=== PATIENT | male | born 1975 | race Caucasian/White ===

== ENCOUNTER 2016-12-28 11:50 | Day surgery (SDC) | payer OTHER ==
[2016-12-28] VITALS (11 sets, daily range): BP systolic 113–131; BP diastolic 51–69; PULSE 74–84; RESP 16–26; O2SAT 92–97
[~2016-12-28] VITALS: Ht 190.5 cm; Wt 152.2 kg
[~2016-12-28 11:50] MED LIST: ALBU2.5V4 INHALATION; ATOM40 PO; CeFAZolin Inj 3 GM in IV Premix IV ONE; FLUT12AE10 IH; HYDR-4003 PO; IBUP200C PO; LISI10TA PO; Lactated Ringer's 1,000 ML IV SCH; MELO-259 PO; NAPR500T PO; OXCA300T2 PO; PALI3TAB PO; RANI150C4 PO; carbamazepine
[2016-12-28] MEDS ORDERED: Ondansetron 2 mg/mL 2 mL Inj ONE (11:51)
[2016-12-28] MEDS ORDERED: fentaNYL-PF 50 mCg/mL 2 mL Inj ONE (11:51)
[2016-12-28] MEDS ORDERED: Propofol 10,000 mCg/mL 20 mL Inj ONE (11:51)
[2016-12-28] MEDS ORDERED: MetoCLOpramide 5 mg/mL 2 mL Inj ONE (11:51)
[2016-12-28] MEDS ORDERED: Dexamethasone 4 mg/mL Inj ONE (11:51)
[2016-12-28] MEDS: Lactated Ringer's 1,000 ML IV SCH ×2 (12:37→16:05)
[2016-12-28] MEDS ORDERED: CARB100C8 PO (12:42)
[2016-12-28] MEDS ORDERED: CeFAZolin Inj 3 Gm/ D5W 50 mL Bag IV ONE (13:42)
[2016-12-28] MEDS ORDERED: HYDROcodone-APAP 5-325 mg Tablet PO PRN (14:10)
--- NOTE | 2016-12-28 14:12 | PCM.ORTHOP ---
Orthopedic Operative Report Date of Service: Dec 28, 2016 Pre Operative Diagnosis Right distal biceps rupture Post Operative Diagnosis Same Procedure Right distal biceps repair Surgeon Surgeon: Zan Russo MD Assistants: Bruce Esteban Indication for Procedure Right distal biceps rupture Findings Per dictation Details of Procedure Operative Indications: Zan a 41-year-old male who presents with right distal biceps rupture A clear explanation was given to the patient regarding the condition, the conservative and surgical options. It was emphasized that the risks and benefits of surgery include but are not limited to infection, wound healing problems, damage to adjacent structures such as nerves, blood vessels and tendons, buttermilk drier operator disability and pain, arthritis, hypersensitivity, deep vein thrombosis, pulmonary embolism and loss of limb or life. The likely post operative recovery and the instructions that are to be followed after surgery were also discussed and explained. The patient was invited to ask questions or seek clarification but there were none. The patient voiced understanding of the entire discussion and requested to move forward. Procedure: Zan was seen in preoperative holding and the right side was reconfirmed and marked as the correct side. The patient was taken to the OR and transferred to the OR table without incident. A time-out was performed reconfirming the patients identity, laterality of surgery and proper administration of preoperative antibiotics. . After the examination the extremity was prepped and draped in a sterile fashion with 2% Clorhexadine solution. A sterile tourniquet was applied. The incision was clearly marked out. We paused to reconfirm the procedure and laterality one last time. Incision was made with a #15 blade and subsequent sharp dissection was performed with aid of electrocautery to control the bleeding down to the level of the fascia. Appropriate full thickness skin flaps were subsequently developed. There was notable disruption of biceps from the trauma. The interval between the BR and pronator teres was identified and developed down to the level of the joint capsule. The lateral antebrachial cutaneous nerve was identified and retracted. Recurrent veins were isolated and coagulated with a bipolar electrocautery. The forearm was fully supinated and the area vacated by the ruptured biceps was identified. Using blunt disection and the bipolar the radial tuberosity was exposed until there was good visualization. At this time the biceps tendon was palpated retracted into the upper arm and was delivered out of the wound. The tendon's overall condition was good. The very end was debrided and then whipstitched in a grasping fashion with a Fiberloop. The allowed for a good grasping stitch. Provisionally it appeared that the tendon could be reduced down to the level of the radial tuberosity. The tuberosity was then debrided and a guidepin was placed slightly distal to the exact center of the insertion point. This was checked with Fluoro to ensure correct placement. The near cortex was then reamed with a 7.5mm reamer. A cortical button was attached to the end of the suture and the elbow flexed. The button was introduced through the bone tunnel flipped and then appropriate tension was applied to reduce the tendon to the bone. The reduction was secure and ROM was checked demonstrated that the biceps was not under too much tension. An interference screw was inserted size 7 The tourniquet was let down and bleeding was controlled. The wound was irrigated copiously with sterile saline solution. Subcutaneous closure was achieved with 2-0 vicryl followed by interrupted 3-0 nylon suture. Steri strips were then applied. The wound was then dressed in a sterile fashion and a posterior splint was applied. The patient was awoken gently from anesthesia and transferred to the PACU in stable condition. 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 Without the qualified biology research assistant being present, it would have extended the operative procedure and made the procedure technically more difficult to perform. Please keep dressing clean dry and intact. Do not remove dressing until follow- up in clinic. Do not weight-bear on the affected extremity. You will follow up in clinic in 10-14 days for suture removal, and placement of new Steri- Strips. You will follow-up with me in clinic without x-rays at this time. You will follow-up with me at 6 weeks postop and may start weightbearing as tolerated at 6-8 weeks. depending on your motion and pain level. Please keep the affected extremity elevated when possible. You may use ice and/or heat as needed for comfort (preferably ice during the first 48-72 hours. Please feel free to call with any further questions, comments, and/or concerns. You have been given medications for pain, medication for possible constipation which is a side affect of the pain medications. Grafts, Implants: None, Implants-See Implant Record Complications There were no periprocedural complications identified. Condition Stable Anesthetic Administered: GA Catheters: None Output, Estimated Blood Loss: 15 Blood Admin during surgery: No Surgical Cast or Splint: Long Arm Splint, Short Arm Splint Surgical Specimen Removed: No Specimen sent to Pathology: No copies to: Zan Russo MD, Christopher L MD Dec 28, 2016 14:12
[2016-12-28] MEDS ORDERED: Bacitracin 50,000 unit Inj ONE (15:29)
[2016-12-28] MEDS ORDERED: Ondansetron 2 mg/mL 2 mL Inj IVPUSH PRN (16:50)
[2016-12-28] MEDS ORDERED: HYDROmorphone 1 mg/mL Inj IVPUSH PRN (16:50)
[2016-12-28] MEDS ORDERED: Phenylephrine 10,000 mCg/mL Inj IVPUSH PRN (16:50)
[2016-12-28] MEDS ORDERED: Lactated Ringer's 1,000 ML IV SCH (16:50)
[2016-12-28] MEDS ORDERED: Lactated Ringer's 500 ML IV PRN (16:50)
[2016-12-28] MEDS ORDERED: EPHEDrine Sulfate 50 mg/mL Inj IVPUSH PRN (16:50)
[2016-12-28] MEDS ORDERED: MetoCLOpramide 5 mg/mL 2 mL Inj IVPUSH PRN (16:50)
[2016-12-28] MEDS ORDERED: Dexamethasone 4 mg/mL Inj IVPUSH PRN (16:50)
[2016-12-28] MEDS ORDERED: fentaNYL-PF 50 mCg/mL 2 mL Inj IVPUSH PRN (16:50)
--- NOTE | 2016-12-28 16:50 | PCM.HPANE ---
Patient Data Surgeon Admitting Provider: Attending Provider:Zan Russo MD Primary Care Physician:Malina Ernandez MD Other Provider:Ca [place] Anesthesia Reason for Visit Right Distal Biceps Rupture Ht/WT & BMI Height (Feet): 6 Height (Inches): 3 Weight (Kilograms): 152.2 Body Mass Index 41.00 Allergies Coded Allergies: sertraline (Verified Allergy, Unknown, UNKNOWN, 12/28/16) alprazolam (Verified Adverse Reaction, Severe, BEHAVIORAL CHANGES, 12/28/16 ) quetiapine fumarate (Verified Adverse Reaction, Severe, BEHAVIORAL CHANGES , 12/28/16) Past Anesthesia History Anesthesia History: Denies:: Anesthesia Reactions, Fam Anesthesia Reaction, Fam Malignant Hypertherm Diabetes History Hx Diabetes?: No 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 ) Medications Hypertension Medication: Yes Home Meds Incl Beta Alvaro: No Reported Medications Carbamazepine Unknown Strength CapsuleUnknown Dose PO BID 12/28/16 Atomoxetine (Strattera)40 Mg Cxljawf66 Mg PO DAILY 12/26/16 Ranitidine 150 Mg Jhfisnl898 Mg PO BID Ref 0 12/26/16 Oxcarbazepine 300 Mg Nqaylv901 Mg PO BID 30 Days 12/26/16 Naproxen (Naprosyn)500 Mg Fkgtgx342 Mg PO BID PRN For Pain Ref 0 12/26/16 Meloxicam 7.5 Mg Tablet7.5 Mg PO DAILY 30 Days Ref 0 12/26/16 Lisinopril 10 Mg Yxndyo64 Mg PO DAILY 30 Days Ref 0 12/26/16 Paliperidone ER (Invega)3 Mg Tab.er.246 Mg PO DAILY 12/26/16 Ibuprofen 200 Mg Sdwvird829 Mg PO QID PRN For Pain Ref 0 12/26/16 Hydrocodone-Acetaminophen 5-325 mg 1 Each Tablet1 Tablet PO Q6H PRN For Pain Ref 0 12/26/16 Fluticasone Propionate (Flovent HFA 220 mcg)12 Gm Aer.w.adap2 Puffs IH DAILY # 12 GM Ref 0 12/26/16 Albuterol Neb Soln 2.5 Mg/3 Ml Vial.neb2.5 Mg INHALATION TID PRN For Shortness of Breath Ref 0 12/26/16 Discontinued Reported Medications [carbamazepine] No Conflict CheckUnknown Dose Q12H 12/26/16 Fluticasone Propionate (Flovent HFA 220 mcg)12 Gm Aer.w.adap2 Puffs IH DAILY # 12 GM Ref 0 06/09/14 Albuterol Sulfate (Albuterol Inhalant Solution)2.5 Mg/0.5 Ml Vial.neb2.5 Mg IH TID PRN For Shortness of Breath 30 Days Ref 0 06/09/14 History History of ENT Problems?: Yes HEENT History: Denies:: Abnormal Airway Cataracts Difficult Intubation Dysphagia Glaucoma Hearing Problem Sinus Problem TMJ Denture Type: None Teeth Condition: Within Normal Limits Hx of Heart Problems?: Yes Cardiovascular History: Positive for:: Heart Murmur (benign heart murmur since childhood) Hypertension Denies:: AICD Abdominal Aortic Aneurism Atrial Fibrillation Cardiac Surgery Chest Pain Congestive Heart Failure Irregular Heartbeat Pacemaker Peripheral Vascular Hx of Respiratory Problem?: Yes Respiratory History: Positive for:: Asthma Dyspnea (CLOUD) Use of Inhalers / NEBS Denies:: COPD Cough Emphysema Oxygen Administration Pneumonia Tuberculosis Use of C-PAP Machine Hx Neurologic Problems?: No Neurological History: Denies:: CVA Dementia Dizziness Headaches Multiple Sclerosis Parkinson's Disease Seizures Hx of GI Problems?: Yes Hx of Problems?: No Genitourinary History: Denies:: Kidney Stones Urinary Tract Infection Male Hx: Denies:: Prostate Problems Scrotal Mass Testicular Surgery Skin History: Positive for:: History Skin Disorders? (closed sore on hand- dr vinod borja) Denies:: Pressure Ulcers Hx Musculoskeletal Problems?: Yes Musculoskeletal History: Positive for:: Musculoskeletal Trauma (right biceps tendon repair current admission problem) Osteoarthritis (elbow) Denies:: Back Injury Fibromyalgia Joint Replacement Myasthenia Gravis Rheumatoid Arthritis Systemic Lupus Hx of Psycho/Social Problems?: Yes Psycho Social History: Positive for:: Anxiety Hx Depression Hx Surgeries?: Yes (ORIF finger fx) Hx Any Other Health Problems?: Yes Other History: Denies:: Cancer Endocrine Disease Hospitalization Thyroid Disease History Blood Transfusions: Positive for:: Accept Blood Products? Denies:: Blood Transfusions Hx Diabetes: No Hx Alcohol Use: YesAlcoholic Drinks Per Day: 2-3 drinks weeklyHx Substance Use : Yes (marjiuana edible, topical, and inhale- daily) Smoking Status: Former Smoker Have You Smoked inLast 12 mo: No Stop/Bang S-Snoring: Do You Snore Loudly: No T-Tired: feel tired, fatigued: No O-Obsered: Observed not breath: No P-Blood Pressure: treated: Yes B- Body Mass Index > 35 kg/m2: Yes A- Age over 50: No N- Neck Large Circumference: Yes G- Gender Male: Yes KESHIA Total Score: 4 Risk Assessment Category Category 1A: Patient has history of documented sleep apnea, and HAS NOT received any narcotic, sedative or anesthesia administration during this stay. Category 1B: Patient has history of documented sleep apnea, and HAS received any narcotic , sedative or anesthesia administration during this stay Category 2: Patient has SUSPECTED Obstructive Sleep Apnea, and HAS received any narcotic , sedative or anesthesia administration during this stay. Category 3: Patient has SUSPECTED Obstructive Sleep Apnea and HAS NOT received narcotic, sedative or anesthesia administration during this stay. Category 4: Outpatient in Procedural Areas with known sleep apnea or who screen positive for High Risk via the STOP/BANG questionnaire. Exam Exam Vital Signs Vital Signs Date Time Temp Pulse Resp B/P Pulse Ox O2 Delivery O2 Flow Rate FiO2 12/28/16 12:33 37.3 83 16 113/55 96 Room Air General Appearance: Alert, Oriented X3, Cooperative, No Acute Distress HEENT/AIRWAY: MP 2 Lungs: Clear to Auscultation Heart: Exam Unremarkable Meds/Labs/Diagnostics Admission Meds Current Medications Lactated Ringer's (Lr) 1,000 ml @ 120 mls/hr Q8H20M IV Last administered on t 12:37; Start 12/28/16 at 05:00; Stop 12/28/16 at 13:26; Status DC Plan Impression Patient chart reviewed, patient interviewed and anesthestic plan with risks, benefits, and alternatives discussed, and informed consent obtained. ASA Physical Status: ASA3 Severe Disease Anesthetic Plan: GA, Regional Block (supraclavicular) Bene/Risks/Altern/Consents: Yes HP Complete Prior to Induction: Yes Ramiro Ortiz MD Dec 28, 2016 15:18
--- NOTE | 2016-12-28 17:56 | PCM.ANEP1 ---
Post Anesthesia PACU Phase 1 Assessment Vital Signs Vital Signs Date Time Temp Pulse Resp B/P Pulse Ox O2 Delivery O2 Flow Rate FiO2 12/28/16 17:50 74 20 131/57 96 Simple Mask 6 12/28/16 17:48 36.1 77 20 130/58 96 Simple Mask 6 12/28/16 12:33 37.3 83 16 113/55 96 Room Air Anesthetic Administered: GA Level of Alertness: Sleeping, hard to arouse Pain: No Nausea or Vomiting: No CV Function & Hydration Stable: Yes Airway Device: Oxygen Delivery: Simple Mask Lungs: Clear to Auscultation Dermatome Level: Full Sensation PACU Phase 2 Assessment Complications: No Patient Instructions Provided: N/A Ramiro Ortiz MD Dec 28, 2016 17:56
== END 2016-12-28 23:59 | disposition home or self-care (01) ==
LOC: SAS 11:50
PROVIDERS: ATTEND Orthopaedic Surgery
DX: S46.211A Strain of muscle, fascia and tendon of other parts of biceps, right arm, initial encounter (principal); I10 Essential (primary) hypertension; J45.909 Unspecified asthma, uncomplicated; F41.8 Other specified anxiety disorders; E66.01 Morbid (severe) obesity due to excess calories; F12.90 Cannabis use, unspecified, uncomplicated; X50.0XXA Overexertion from strenuous movement or load, initial encounter; Y93.89 Activity, other specified; Y92.9 Unspecified place or not applicable; Y99.8 Other external cause status; Z68.41 Body mass index [BMI] 40.0-44.9, adult; Z86.14 Personal history of Methicillin resistant Staphylococcus aureus infection; Z87.891 Personal history of nicotine dependence
CPT/HCPCS: 24342; C1713; J0690; J1100; J1885; J2405; J2765; J3010; J7120